=== PATIENT | female | born 1955 | race Caucasian/White ===

== ENCOUNTER → 2018-01-06 | Emergency (ER) | payer OTHER ==
[~2018-01-06] VITALS: Ht 154.9 cm; Wt 78.0 kg
[~2018-01-06] MED LIST: ALBUTEROL2.5 MG/3 M IH; COZAAR50 MG PO; MEDROLPACK PO; OSEL75CA PO; TUSSI PRES-B L120 M1 PO
== END | disposition home or self-care (01) ==
LOC: ER 09:16
DX: B34.9 Viral infection, unspecified (principal); J45.998 Other asthma